=== PATIENT | male | born 1980 | race African-American/Black ===

== ENCOUNTER 2017-04-15 20:42 | Observation (INO) ==
[2017-04-15] MEDS ORDERED: ASPIRIN 325 MG TABLET PO STA (22:37)
[2017-04-15] MEDS ORDERED: KETOROLAC 30 MG/1 ML VIAL IV STA (22:37)
[2017-04-15] MEDS ORDERED: PANTOPRAZOLE 40 MG VIAL IV STA (22:38)
[2017-04-15] MEDS ORDERED: ACETAMINOPHEN 500 MG TABLET ONE (22:49)
[2017-04-15] MEDS ORDERED: KETOROLAC 30 MG/1 ML VIAL ONE (22:56)
[2017-04-15] MEDS ORDERED: ASPIRIN 325 MG TABLET ONE (22:56)
[2017-04-15] MEDS ORDERED: PANTOPRAZOLE 40 MG VIAL IV ONE (22:56)
[2017-04-15] MEDS ORDERED: hydrALAZINE 20 MG/1 ML VIAL IV STA (23:09)
[2017-04-15] MEDS ORDERED: hydrALAZINE 20 MG/1 ML VIAL ONE (23:23)
[2017-04-15 23:26] LABS: Basophils % 0.4 % (0.0-0.8); Eosinophils # 0.3 10*3/uL (0.0-0.87); Eosinophils % 4.5 % (0.00-10.9); Hematocrit 38.8 VOL% (42.0-52.0); Hemoglobin 12.4 GM/DL (14.0-18.0); Immature Granulocytes % 0.2 %; Immature Granulocytes Absolute 0.01 #; Lymphocytes # 1.6 10*3/uL (1.4-4.0); Lymphocytes % 28.1 % (21.2-54.2); Mean Corpuscular Hemoglobin 23 PG (27-34); Mean Corpuscular Volume 71.9 FL (87-102); Mean Platelet Volume 12.2 FL (9.6-12.0); Monocytes # 0.7 10*3/uL (0.11-0.8); Monocytes % 12.2 % (1.7-12.7); Neutrophils % 54.6 % (38.7-73.9); Platelet Count 229 T/CUMM (130-400); Red Cell Distribution Width 16.4 % (9.3-17.3); White Blood Count 5.6 T/CUMM (4-12)
[2017-04-16 01:15] LABS: Albumin 3.8 G/DL (3.4-5.0); Bilirubin,Total 0.4 MG/DL (0.2-1.0); Calcium 8.7 MG/DL (8.5-10.1); Osmolality,Calculated 272.8 MOS/KG (273-304); Potassium 4.1 MMOL/L (3.5-5.1); Total Protein 7.6 G/DL (6.4-8.3)
[2017-04-16] MEDS ORDERED: SODIUM CHLORIDE 0.9% 1,000 ML IV STA (01:54)
[2017-04-16] MEDS ORDERED: NITROGLYCERIN 2% OINT 1 INCH/GM PACK TOP STA (01:54)
[2017-04-16] MEDS ORDERED: NITROGLYCERIN SL 0.4 MG TABLET SL STA ×2 (01:55)
[2017-04-16] MEDS ORDERED: NITROGLYCERIN 2% OINT 1 INCH/GM PACK TOP ONE (01:57)
[2017-04-16] MEDS ORDERED: NITROGLYCERIN SL 0.4 MG TABLET SL ONE (01:58)
[2017-04-16] MEDS ORDERED: ACETAMINOPHEN 325 MG TABLET ONE (03:27)
[2017-04-16] MEDS ORDERED: ASPIRIN 325 MG TABLET ONE (09:07)
[2017-04-16 09:53] LABS: Barbiturates Screen,Urine Negative (Negative); Benzodiazepines Screen,Urine Negative (Negative); Cannabinoid Screen,Urine Positive (Negative); Opiate Screen,Urine Negative (Negative); Phencyclidine Screen,Urine Negative (Negative)
[2017-04-16] MEDS ORDERED: MAGNESIUM HYDROXIDE SUSP 30 ML UDCUP PO PRN (10:18)
[2017-04-16] MEDS ORDERED: ZALEPLON 5 MG CAPSULE PO PRN (10:18)
[2017-04-16] MEDS ORDERED: NITROGLYCERIN SL 0.4 MG TABLET SL PRN (10:18)
[2017-04-16] MEDS ORDERED: MAGNESIUM SULF RIDER 4 GM in PREMIX 1 EACH IV PRN (10:18)
[2017-04-16] MEDS ORDERED: POTASSIUM CHLORIDE 20 MEQ TABLET PO PRN ×2 (10:18)
[2017-04-16] MEDS ORDERED: BISACODYL 5 MG TABLET PO PRN (10:18)
[2017-04-16] MEDS ORDERED: ACETAMINOPHEN 325 MG TABLET PO PRN (10:18)
[2017-04-16] MEDS ORDERED: MAGNESIUM SULF RIDER 2 GM in PREMIX 1 EACH IV PRN ×2 (10:18→10:29)
[2017-04-16] MEDS ORDERED: ONDANSETRON 4 MG/2 ML VIAL IV PRN (10:18)
[2017-04-16] MEDS ORDERED: DIAZEPAM 5 MG TABLET ONE (10:28)
[2017-04-16] MEDS ORDERED: diphenhydrAMINE CAP 25 MG CAPSULE ONE (10:28)
[2017-04-16] MEDS ORDERED: DIAZEPAM 5 MG TABLET PO ONE (10:29)
[2017-04-16] MEDS ORDERED: diphenhydrAMINE CAP 25 MG CAPSULE PO ONE (10:29)
[2017-04-16] MEDS ORDERED: POTASSIUM CHLORIDE RIDER 10 MEQ in PREMIX 1 EACH IV PRN (10:29)
[2017-04-16] MEDS: PANTOPRAZOLE 40 MG TABLET PO SCH ×2 (10:30→16:08)
[2017-04-16] MEDS ORDERED: ASPIRIN 325 MG TABLET PO ONE (10:35)
[2017-04-16 10:49] LABS: Microcytosis 1+; Polychromasia 1+
[2017-04-16] MEDS ORDERED: MIDAZOLAM 2 MG/2 ML VIAL ONE (10:50)
[2017-04-16] MEDS ORDERED: HEPARIN/NACL 0.9% 2 UNITS/ML 1,000 ML IV ONE (10:50)
[2017-04-16] MEDS ORDERED: HYDROmorphone 2 MG/1 ML VIAL ONE (10:50)
[2017-04-16] MEDS ORDERED: LIDOCAINE 1% 20 ML VIAL ONE (10:50)
[2017-04-16] MEDS ORDERED: ONDANSETRON 4 MG/2 ML VIAL ONE (11:12)
[2017-04-16] MEDS ORDERED: BIVALIRUDIN 250 MG VIAL IV ONE (11:38)
[2017-04-16] MEDS ORDERED: LABETALOL 20 MG/4 ML SYRINGE IV ONE ×2 (11:46→12:05)
[2017-04-16 11:50] LABS: Risk Ratio 7.27
[2017-04-16 11:58] LABS: CKMB % 1.8 %
[2017-04-16 12:01] LABS: Troponin I Only 0.89 NG/ML (0.00-0.045)
[2017-04-16] MEDS ORDERED: TICAGRELOR 90 MG TABLET ONE (12:13)
[2017-04-16 14:28] LABS: CKMB % 1.7 %
[2017-04-16] MEDS: ENOXAPARIN 40 MG/0.4 ML SYRINGE SUBCUT SCH (14:28)
[2017-04-16 14:31] LABS: Troponin I Only 1.22 NG/ML (0.00-0.045)
[2017-04-16] MEDS ORDERED: LORazepam 0.5 MG TABLET PO PRN (15:31)
[2017-04-16 16:11] LABS: CKMB % 1.7 %
[2017-04-16 16:13] LABS: Troponin I Only 1.25 NG/ML (0.00-0.045)
[2017-04-16] MEDS ORDERED: ROSUVASTATIN 20 MG TABLET PO SCH (21:00)
[2017-04-16] MEDS: TICAGRELOR 90 MG TABLET PO SCH (22:42)
[2017-04-17 06:09] LABS: Osmolality,Calculated 274.7 MOS/KG (273-304)
[2017-04-17] MEDS ORDERED: ASPIRIN EC 81 MG TABLET PO SCH (09:00)
[2017-04-17] MEDS ORDERED: METOPROLOL TARTRATE 25 MG TABLET PO SCH (10:00)
[2017-04-17] MEDS: TICAGRELOR 90 MG TABLET PO SCH (10:14)
[2017-04-17] MEDS: PANTOPRAZOLE 40 MG TABLET PO SCH (10:14)
[2017-04-17] MEDS: ENOXAPARIN 40 MG/0.4 ML SYRINGE SUBCUT SCH (10:15)
[2017-04-17] MEDS ORDERED: LOSARTAN 25 MG TABLET PO SCH (11:30)
[2017-04-17 15:00] VITALS: BP 159/93
[2017-04-17] MEDS ORDERED: CARVEDILOL 12.5 MG TABLET PO SCH (21:00)
== END 2017-04-17 16:10 | disposition home or self-care (01) ==
LOC: N.ED 20:42 → INTOOBSV 04-16 03:46 → N.TELEN 04-16 03:46
PROVIDERS: ADMIT Internal Medicine Cardiovascular Disease; ATTEND Internal Medicine Cardiovascular Disease
PROC: CLCCHCL (ICD-10-PCS; 2017-04-16 11:15)

== ENCOUNTER 2017-11-24 14:00 | Inpatient (IN) ==
[2017-11-24] MEDS ORDERED: diphenhydrAMINE CAP 25 MG CAPSULE PO PRN (16:43)
[2017-11-24] MEDS ORDERED: ZALEPLON 5 MG CAPSULE PO PRN (16:43)
[2017-11-24] MEDS ORDERED: MAGNESIUM SULF RIDER 4 GM in PREMIX 1 EACH IV PRN (16:43)
[2017-11-24] MEDS ORDERED: MAGNESIUM SULF RIDER 2 GM in PREMIX 1 EACH IV PRN (16:43)
[2017-11-24] MEDS ORDERED: NICOTINE 21 MG/24 HR PATCH TRANSDERM PRN (16:43)
[2017-11-24] MEDS ORDERED: ACETAMINOPHEN 325 MG TABLET PO PRN (16:43)
[2017-11-24] MEDS ORDERED: NITROGLYCERIN SL 0.4 MG TABLET SL PRN (16:49)
[2017-11-24 17:29] LABS: Troponin I Only 2.72 NG/ML (0.00-0.045)
[2017-11-24] MEDS: ENOXAPARIN 120 MG/0.8 ML SYRINGE SUBCUT SCH (18:08)
[2017-11-24] MEDS: NITROGLYCERIN 2% OINT 1 INCH/GM PACK TOP SCH ×2 (18:09→23:09)
[2017-11-24 18:48] LABS: Apearance,Urine CLEAR (Clear); Bilirubin,Urine Negative (Negative); Blood, Urine Negative (Negative); Glucose,Urine (UA) Negative (Negative); Ketones,Urine Negative (Negative); Mucus,Urine Occasional /LPF (Occasional); Nitrite,Urine Negative (Negative); Protein,Urine Negative; RBC,Urine <1 /HPF (0-4); Urine Color Yellow (Yellow); Urine Specific Gravity 1.021 (1.001-1.035); Urine Urobilinogen < 2.0 EU/DL (0.2-1.0); WBC,Urine 1 /HPF (0-6)
[2017-11-24] MEDS: TICAGRELOR 90 MG TABLET PO SCH (20:34)
[2017-11-24] MEDS: ATORVASTATIN 80 MG TABLET PO SCH (20:34)
[2017-11-24] MEDS: LISINOPRIL 10 MG TABLET PO SCH (20:34)
[2017-11-24] MEDS: METOPROLOL TARTRATE 50 MG TABLET PO SCH (20:34)
[2017-11-24 20:44] LABS: CKMB % 2.8 %
[2017-11-24 20:57] LABS: Troponin I Only 2.52 NG/ML (0.00-0.045)
[2017-11-24] MEDS ORDERED: ENOXAPARIN 40 MG/0.4 ML SYRINGE SUBCUT SCH (21:00)
[2017-11-24] MEDS ORDERED: ONDANSETRON 4 MG/2 ML VIAL IV PRN (23:03)
[2017-11-25 00:52] LABS: CKMB % 2.3 %
[2017-11-25 01:11] LABS: Troponin I Only 2.81 NG/ML (0.00-0.045)
[2017-11-25 04:47] LABS: Basophils % 0.4 % (0.0-0.8); Eosinophils # 0.1 10*3/uL (0.0-0.87); Eosinophils % 1.3 % (0.00-10.9); Hematocrit 38.6 VOL% (42.0-52.0); Hemoglobin 12.1 GM/DL (14.0-18.0); Immature Granulocytes % 0.1 %; Immature Granulocytes Absolute 0.01 #; Lymphocytes # 2.2 10*3/uL (1.4-4.0); Lymphocytes % 31.7 % (21.2-54.2); Mean Corpuscular HGB Conc 31.3 GM/DL (32-36); Mean Corpuscular Hemoglobin 22 PG (27-34); Mean Corpuscular Volume 70.8 FL (87-102); Mean Platelet Volume 11.1 FL (9.6-12.0); Monocytes # 0.7 10*3/uL (0.11-0.8); Monocytes % 9.3 % (1.7-12.7); Neutrophils % 57.2 % (38.7-73.9); Platelet Count 243 T/CUMM (130-400); Red Blood Count 5.45 MC/CUMM (3.8-5.5); Red Cell Distribution Width 17.3 % (9.3-17.3); White Blood Count 7.1 T/CUMM (4-12)
[2017-11-25 05:16] LABS: Albumin 3.2 G/DL (3.4-5.0); Bilirubin,Total 0.6 MG/DL (0.2-1.0); Calcium 8.9 MG/DL (8.5-10.1); Osmolality,Calculated 274.7 MOS/KG (273-304); Potassium 3.9 MMOL/L (3.5-5.1); Risk Ratio 6.81; Thyroid Stimulating Hormone 2.48 uIU/ml (0.358-3.74); Total Protein 7.6 G/DL (6.4-8.3); VLDL CHOLESTEROL 42.8 MG/DL
[2017-11-25] MEDS: ENOXAPARIN 120 MG/0.8 ML SYRINGE SUBCUT SCH (06:07)
[2017-11-25] MEDS ORDERED: POTASSIUM CHLORIDE RIDER 10 MEQ in PREMIX 1 EACH IV PRN (09:51)
[2017-11-25] MEDS ORDERED: MAGNESIUM SULF RIDER 2 GM in PREMIX 1 EACH IV PRN (09:51)
[2017-11-25] MEDS ORDERED: diphenhydrAMINE CAP 25 MG CAPSULE PO ONE (09:51)
[2017-11-25] MEDS ORDERED: DIAZEPAM 5 MG TABLET PO ONE (09:51)
[2017-11-25] MEDS ORDERED: SODIUM CHLORIDE 0.9% 1,000 ML IV SCH ×2 (10:00→12:00)
[2017-11-25] MEDS: ASPIRIN 325 MG TABLET PO SCH (10:09)
[2017-11-25] MEDS: LISINOPRIL 10 MG TABLET PO SCH ×2 (10:10→21:48)
[2017-11-25] MEDS: METOPROLOL TARTRATE 50 MG TABLET PO SCH ×2 (10:10→21:48)
[2017-11-25] MEDS: TICAGRELOR 90 MG TABLET PO SCH (10:10)
[2017-11-25] MEDS: PANTOPRAZOLE 40 MG TABLET PO SCH (10:10)
[2017-11-25] MEDS ORDERED: HEPARIN/NACL 0.9% 2 UNITS/ML 1,000 ML IV ONE (10:33)
[2017-11-25] MEDS ORDERED: LIDOCAINE 1% 20 ML VIAL ONE (10:33)
[2017-11-25] MEDS ORDERED: fentaNYL 100 MCG/2 ML VIAL ONE (10:54)
[2017-11-25] MEDS ORDERED: NITROGLYCERIN DRIP 50 MG/250 ML BOTTLE IV ONE (10:54)
[2017-11-25] MEDS ORDERED: VERAPAMIL 5 MG/2 ML VIAL ONE (10:54)
[2017-11-25] MEDS ORDERED: MIDAZOLAM 2 MG/2 ML VIAL ONE (10:54)
[2017-11-25] MEDS: EPTIFIBATIDE 75 MG/100 ML BOTTLE IV SCH ×2 (11:32→17:20)
[2017-11-25] MEDS ORDERED: CLOPIDOGREL 300 MG TABLET ONE (11:37)
[2017-11-25] MEDS ORDERED: EPTIFIBATIDE 20,000 MCG/10 ML VIAL IV ONE (12:23)
[2017-11-25] MEDS ORDERED: EPTIFIBATIDE 75 MG/100 ML BOTTLE IV ONE (12:23)
[2017-11-25] MEDS: ATORVASTATIN 80 MG TABLET PO SCH (21:48)
[2017-11-26 04:48] LABS: Basophils % 0.2 % (0.0-0.8); Eosinophils # 0.1 10*3/uL (0.0-0.87); Eosinophils % 1.9 % (0.00-10.9); Hematocrit 39.9 VOL% (42.0-52.0); Hemoglobin 12.2 GM/DL (14.0-18.0); Immature Granulocytes % 0.2 %; Immature Granulocytes Absolute 0.01 #; Lymphocytes # 1.7 10*3/uL (1.4-4.0); Mean Corpuscular HGB Conc 30.6 GM/DL (32-36); Mean Corpuscular Hemoglobin 22 PG (27-34); Mean Corpuscular Volume 72.9 FL (87-102); Mean Platelet Volume 11.6 FL (9.6-12.0); Monocytes # 0.6 10*3/uL (0.11-0.8); Monocytes % 10.6 % (1.7-12.7); Neutrophils # 3.3 10*3/uL (1.4-7.4); Neutrophils % 57.1 % (38.7-73.9); Platelet Count 244 T/CUMM (130-400); Red Blood Count 5.47 MC/CUMM (3.8-5.5); Red Cell Distribution Width 16.7 % (9.3-17.3); White Blood Count 5.8 T/CUMM (4-12)
[2017-11-26 05:15] LABS: CKMB % 1.5 %; Calcium 9.1 MG/DL (8.5-10.1); Osmolality,Calculated 275.5 MOS/KG (273-304); Potassium 4.2 MMOL/L (3.5-5.1)
[2017-11-26 05:26] LABS: Troponin I Only 2.13 NG/ML (0.00-0.045)
[2017-11-26 07:51] VITALS: BP 116/56
[2017-11-26] MEDS: ASPIRIN 325 MG TABLET PO SCH (08:59)
[2017-11-26] MEDS: METOPROLOL TARTRATE 50 MG TABLET PO SCH (08:59)
[2017-11-26] MEDS: LISINOPRIL 10 MG TABLET PO SCH (08:59)
[2017-11-26] MEDS: PANTOPRAZOLE 40 MG TABLET PO SCH (08:59)
[2017-11-26] MEDS ORDERED: CLOPIDOGREL 75 MG TABLET PO SCH (09:00)
[2017-11-26] MEDS ORDERED: cephALEXin 500 MG CAPSULE PO SCH (09:30)
== END 2017-11-26 12:24 | disposition home or self-care (01) | DRG 251 ==
LOC: N.TELES 16:21
PROVIDERS: ADMIT Internal Medicine Cardiovascular Disease; ATTEND Internal Medicine Cardiovascular Disease
PROC: CLCCHCL (ICD-10-PCS; 2017-11-25 11:15)